=== PATIENT | male | born 1940 | race Caucasian/White ===

== ENCOUNTER 2017-05-11 05:56 | Day surgery (SDC) | payer MEDICARE ==
[2017-05-11] MEDS ORDERED: DIPRIVAN 200 MG/20 ML IV ONE (05:57)
[2017-05-11] MEDS ORDERED: Ketamine HCl 50 MG/ML IV ONE (05:57)
[2017-05-11] MEDS ORDERED: Lactated Ringers 1,000 ML IV SCH (06:30)
[2017-05-11] MEDS ORDERED: Lactated Ringers 1,000 ML IV ONE (06:48)
[2017-05-11 09:07] VITALS: BP 150/76; PULSE 63; O2SAT 94
--- NOTE | 2017-05-11 11:01 | OP ---
SURGERY DATE/TIME: 05/11/2017 0659 PREOPERATIVE DIAGNOSIS: Screening exam. POSTOPERATIVE DIAGNOSIS: Normal colon. PROCEDURE: Colonoscopy. SURGEON: Dr. Brandt. ANESTHESIA: MAC. Medications given by anesthesia department. HISTORY: The patient is a 76 year-old white male patient presenting now for screening colonoscopy. He was appraised of the risks of the procedure including the risk of perforation, phlebitis, untoward reaction to medication, bleeding and missed lesions. The patient verbalized his understanding and desired to have the procedure performed. DESCRIPTION OF PROCEDURE: The patient was given the medications by the anesthesia department. He had continuous pulse oximetry, ECG monitoring, intermittent blood pressure monitoring and tidal CO2 monitoring during the examination. He was placed in the left lateral decubitus position. A digital rectal examination was performed and revealed somewhat narrowed anal canal but no masses were felt. The flexible Olympus pediatric colonoscope was used to intubate the rectum. A view of the colon was developed sequentially to the cecum. Upon insertion and withdrawal, including a retroflex view in the rectum, no mucosal lesions were encountered. The scope was removed from the patient who tolerated the procedure well and was sent back to OP recovery in good condition. The prep was noted to be suboptimal.
== END 2017-05-11 09:00 | disposition home or self-care (01) ==
LOC: SDC 05:56
PROVIDERS: ATTEND Family Medicine
PROC: 0DJD8ZZ Inspection of Lower Intestinal Tract, Via Natural or Artificial Opening Endoscopic (ICD-10-PCS; principal; 2017-05-11)
DX: Z12.11 Encounter for screening for malignant neoplasm of colon (principal)
CPT/HCPCS: 00810; 99100; J2704

== ENCOUNTER 2017-09-08 16:08 | Observation (INO) | payer MEDICARE ==
--- NOTE | 2017-09-08 16:54 | ERPHSYRPT ---
- History of Present Illness Time Seen by Provider: 09/08/17 16:26 Source: patient, family (), EMS Patient Subjective Stated Complaint: to er per ems called for sob where states pt had episode of difficulty breathing and reporting of possible pain to chest. PT states she gave him one nitro though upon arrival ems state pt did not appear sob. pt arrives dysphasic from previous stroke though able to communicate pain to right shoulder and forearm Triage Nursing Assessment: to er c/o pain to possible right arm and lower abd. 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 He has had right arm pain today. Central chest pain since noon. gave NTG. He takes daily asa. They were worried about his heart so came to ER. He has no fall or injury. No fever or chills. Timing/Duration: today Severity: moderate Allergies/Adverse Reactions: No Known Drug Allergies Allergy (Verified 05/11/17 06:41) Home Medications: Alprazolam [Xanax 0.25 mg] 0.25 mg PO TIDPRN 05/06/17 [History] Aspirin 81 mg PO DAILY 05/06/17 [History] Bisacodyl [Laxative] 5 mg PO DAILY 05/06/17 [History] Citalopram Hydrobromide [Celexa] 20 mg PO DAILY 05/06/17 [History] Cyclobenzaprine HCl 10 mg [Cyclobenzaprine 10 MG] 10 mg PO TIDPRN [History] Docusate Sodium [Stool Softener] 50 mg PO DAILY PRN PRN 05/06/17 [History] Furosemide 20 mg [Lasix 20 mg] 20 mg PO DAILY 05/06/17 [History] Losartan Potassium 50 mg PO BID 05/06/17 [History] Metoprolol Succinate 50 mg PO DAILY 05/06/17 [History] Naproxen 375 mg PO BID 05/06/17 [History] Hx Tetanus, Diphtheria Vaccination/Date Given: Yes Hx Influenza Vaccination/Date Given: Yes - Review of Systems Eyes: No Symptoms Ears, Nose, & Throat: No Symptoms Respiratory: No Cough, No Dyspnea Cardiac: Chest Pain Abdominal/Gastrointestinal: No Abdominal Pain, No Nausea, No Vomiting Musculoskeletal: Joint Pain (right arm), No Back Pain, No Neck Pain, No Injury Neurological: No Dizziness, No Focal Weakness, No Parasthesia All Other Systems: Reviewed and Negative - Past Medical History Pertinent Past Medical History: Yes Neurological History: Stroke ENT History: No Pertinent History Cardiac History: High Cholesterol, Hypertension, Myocardial Infarction ([place]) Respiratory History: COPD Endocrine Medical History: No Pertinent History Musculoskeletal History: No Pertinent History GI Medical History: GERD History: No Pertinent History Psycho-Social History: No Pertinent History Male Reproductive Disorders: Prostate Problems - Past Surgical History Past Surgical History: Yes Neuro Surgical History: No Pertinent History Cardiac: No Pertinent History Respiratory: No Pertinent History Gastrointestinal: No Pertinent History Genitourinary: No Pertinent History Musculoskeletal: No Pertinent History Male Surgical History: No Pertinent History Other Surgical History: colonoscopies - Social History Smoking Status: Current every day smoker How long have you smoked: teenager Exposure to second hand smoke: Yes Drug Use: none Patient Lives Alone: No (here with ) - Nursing Vital Signs Nursing Vital Signs: Initial Vital Signs Temperature 98.2 F 09/08/17 16:10 Pulse Rate 106 H 09/08/17 16:10 Respiratory Rate 18 09/08/17 16:10 Blood Pressure 138/75 09/08/17 16:10 O2 Sat by Pulse Oximetry 94 L 09/08/17 16:10 Pain Scale Pain Intensity 0 - Physical Exam General Appearance: alert Eye Exam: PERRL/EOMI Ears, Nose, Throat Exam: dry mucous membranes Neck Exam: supple Respiratory Exam: normal breath sounds Cardiovascular Exam: regular rate/rhythm Gastrointestinal/Abdomen Exam: soft, No tenderness, No distention Extremity Exam: other (drawn right arm, nontender to palpation but basically desensate, pulse intact, no significant swelling, right frozen shoulder.) Neurologic Exam: alert, cooperative, sensation nml, other (partially aphasic), No motor deficits Skin Exam: warm, dry SpO2 Interpretation: normal SpO2: 94 - Course Nursing assessment & vital signs reviewed: Yes EKG Interpreted by Me: RATE (103), Sinus Tach, NORMAL AXIS, NORMAL INTERVALS ( QTc 464), Q-wave (inferior), Non-specific ST Changes - Radiology Exams cxr X-ray Interpretation: Teleradiologist Report (subtle asymmetric right base infiltrate vs atelectasis) Ordered Tests: Active Orders 24 hr Category Date Time Status Building Services Supervisor STAT Care 09/08/17 16:44 Active EKG-ER Only STAT Care 09/08/17 16:44 Active IV Insertion STAT Care 09/08/17 16:44 Active Pulse Oximetry (ED) STAT Care 09/08/17 16:44 Active CHEST 1 VIEW (PORTABLE) Stat Exams 09/08/17 16:44 Completed FOREARM Stat Exams 09/08/17 16:45 Completed HUMERUS Stat Exams 09/08/17 16:45 Completed BLOOD CULTURE Stat Lab 09/08/17 18:13 Ordered CBC W DIFF Stat Lab 09/08/17 17:17 Completed CMP Stat Lab 09/08/17 17:17 Completed Lactic Acid Stat Lab 09/08/17 18:12 Ordered Manual Differential NC Stat Lab 09/08/17 17:17 Completed TROPONIN Q3H Lab 09/08/17 17:17 Completed TROPONIN Q3H Lab 09/08/17 19:45 Ordered TROPONIN Q3H Lab 09/08/17 22:45 Ordered TROPONIN Q3H Lab 09/09/17 01:45 Ordered TROPONIN Q3H Lab 09/09/17 04:45 Ordered Lab/Rad Data: Laboratory Result Diagrams 09/08/17 17:17 09/08/17 17:17 Laboratory Results 09/08/17 09/08/17 09/08/17 Range/Units 17:17 17:17 17:17 WBC 14.9 H (4.0-10.5) K/mm3 RBC 4.46 (4.1-5.6) M/mm3 Hgb 14.0 (12.5-18.0) gm/dl Hct 42.7 (42-50) % MCV 95.7 (78-100) fl MCH 31.4 (26-32) pg MCHC 32.8 (32-36) g/dl RDW 13.5 (11.5-14.0) % Plt Count 138 L (150-450) K/mm3 MPV 10.9 H (6-9.5) fl Gran % 86.7 H (36.0-66.0) % Lymphocytes % 4.3 L (24.0-44.0) % Monocytes % 8.6 (0.0-12.0) % Eosinophils % 0.1 (0.00-5.0) % Basophils % 0.3 (0.0-0.4) % Segmented Neutrophils 91 H (36.-66.) % Band Neutrophils 2 (0.0-2.0) % Lymphocytes (Manual) 5 L (24-44) % Monocytes (Manual) 2 (0.0-12.0) % Basophils # 0.04 (0-0.4) Differential Comment NORMAL Platelet Estimate DECREASED (NORMAL) Sodium 137 (136-145) mEq/L Potassium 4.2 (3.5-5.1) mEq/L Chloride 103 (98-107) mEq/L Carbon Dioxide 27.4 (21-32) mEq/L Anion Gap 10.7 (5-15) MEQ/L BUN 16 (9-20) mg/dL Creatinine 1.37 H (0.55-1.30) mg/dl Estimated GFR 54 ML/MIN Glucose 183 H (70-110) MG/DL Calcium 8.9 (8.5-10.1) mg/dL Total Bilirubin 0.60 (0.2-1.0) mg/dL AST 24 (15-37) U/L ALT 27 (12-78) U/L Alkaline Phosphatase 104 (46-116) U/L Troponin I < 0.017 (0.000-0.056) ng/ml Serum Total Protein 6.8 (6.4-8.2) gm/dL Albumin 3.5 (3.4-5.0) g/dL - Progress Progress Note: 09/08/17 18:13 CXR shows ?right base infiltrate. Arm xray negative. Still has right arm pain. No chest pain. concerned about heart. Called Dr Brandt who advised obs. Counseled pt/family regarding: diagnosis, need for follow-up - Departure Time of Disposition: 18:14 Departure Disposition: Observation Clinical Impression: Chest pain, rule out acute myocardial infarction, right base pneumonia, Hx of completed stroke Condition: Fair Critical Care Time: No Referrals: NIKKI BRANDT [Primary Care Provider] -
--- NOTE | 2017-09-08 17:14 | XRAY ---
Indication: Short of breath. Chest pain. Comparison: None Portable chest demonstrates subtle asymmetric right base infiltrate versus atelectasis. Remaining heart and lungs unremarkable. Bony thorax intact with mild degenerative changes.
--- NOTE | 2017-09-08 17:16 | XRAY ---
Indication: Pain. Stroke. Comparison: None 2 views of the right forearm demonstrates mild osteopenia. No other bony, articular, or soft tissue abnormalities.
--- NOTE | 2017-09-08 17:16 | XRAY ---
Indication: Pain. Stroke. Comparison: None 2 views of the right humerus demonstrates mild osteopenia, tiny lateral epicondyle spurring, and mild AC degenerative arthropathy. No other bony, articular, or soft tissue abnormalities.
[2017-09-08 17:23] LABS: BASOPHIL % 0.3 % (0.0-0.4); Basophil (Absolute #) 0.04 (0-0.4); Eosinophil % 0.1 % (0.00-5.0); Eosinophil (Absolute #) 0.01 (0-0.5); Granulocytes % 86.7 % (36.0-66.0); Hematocrit 42.7 % (42-50); Lymphocyte (Absolute #) 0.64 (1.0-4.6); Lymphocytes % 4.3 % (24.0-44.0); Mean Cell Volume 95.7 fl (78-100); Mean Corpuscular Hemoglobin 31.4 pg (26-32); Mean Corpuscular Hgb Concent. 32.8 g/dl (32-36); Mean Platelet Volume 10.9 fl (6-9.5); Monocyte (Absolute #) 1.28 (0.0-1.3); Monocytes % 8.6 % (0.0-12.0); Platelet Count 138 K/mm3 (150-450); Red Blood Count 4.46 M/mm3 (4.1-5.6); Red Cell Distribution Width 13.5 % (11.5-14.0); White Blood Count 14.9 K/mm3 (4.0-10.5)
[2017-09-08 17:49] LABS: ALBUMIN 3.5 g/dL (3.4-5.0); ANION GAP 10.7 MEQ/L (5-15); BILIRUBIN,TOTAL 0.6 mg/dL (0.2-1.0); Calcium 8.9 mg/dL (8.5-10.1); Carbon Dioxide 27.4 mEq/L (21-32); Creatinine 1 1.37 mg/dl (0.55-1.30); Potassium 4.2 mEq/L (3.5-5.1); Total Protein 6.8 gm/dL (6.4-8.2)
[2017-09-08 18:01] LABS: BAND 2 % (0.0-2.0); Lymphocytes 5 % (24-44); Monocyte 2 % (0.0-12.0); Neutrophils 91 % (36.-66.); Platelet Estimate DECREASED (NORMAL); Total Cells Counted 100
[2017-09-08] MEDS ORDERED: ROCEPHIN 1 Gm-D5w 50 ml Bag** 1 G/50 ML IVPB IV STA (18:12)
[2017-09-08] MEDS ORDERED: Vibramycin 100 MG PO ONE (18:13)
[2017-09-08] MEDS ORDERED: NITRO-BID 2% UD PACKETS TOP ONE (18:15)
[2017-09-08] MEDS ORDERED: Senokot-S Tablet PO PRN (19:09)
[2017-09-08] MEDS ORDERED: NovoLOG Insulin SQ PRN (19:09)
[2017-09-08] MEDS ORDERED: TYLENOL 325 MG PO PRN (19:09)
[2017-09-08] MEDS ORDERED: MILK OF MAGNESIA 30 ML PO PRN (19:09)
[2017-09-08] MEDS ORDERED: MAALOX ES 30 ML UNIT DOSE PO PRN (19:09)
[2017-09-08] MEDS ORDERED: Zofran 4 MG/2 ML VIAL IV PRN (19:09)
[2017-09-08] MEDS: Vibramycin 100 MG PO SCH (22:07)
[2017-09-08] MEDS: NITRO-BID 2% UD PACKETS TOP SCH (22:07)
[2017-09-09 05:47] LABS: Risk Ratio 3.7
[2017-09-09] MEDS: NITRO-BID 2% UD PACKETS TOP SCH (05:50)
[2017-09-09] MEDS: Vibramycin 100 MG PO SCH (09:15)
[2017-09-09] MEDS ORDERED: ROCEPHIN 1 Gm-D5w 50 ml Bag** 1 G/50 ML IVPB IV SCH (10:00)
[2017-09-09] MEDS ORDERED: Ecotrin 325 MG PO SCH (10:00)
--- NOTE | 2017-09-09 10:43 | SSS ---
DISCHARGE DIAGNOSES: 1) DYSPNEA. 2) ARM PAIN. HISTORY OF PRESENT ILLNESS: The patient is a 76 year-old white male patient who apparently began complaining of discomfort last evening. It was hard to get a history from the patient because he has had a previous stroke with right hemiparesis and aphasia. The patient's reports that she can tell that he was complaining of arm pain. They were concerned about the potential for being due to his heart. He did begin having somewhat of a cough as well though as well as chills but his temperature was not checked at home. She reports he has had no weight fluctuation recently to be concerned for the possibility of heart failure and no leg edema. PAST MEDICAL HISTORY: Otherwise significant for chronic obstructive pulmonary disease, previous myocardial infarction, hypertension, hyperlipidemia, gastroesophageal reflux disease. HOME MEDICATIONS: Currently include aspirin 81 mg a day, Celexa 20 mg a day, cyclobenzaprine 10 mg t.i.d. PRN, docusate sodium 50 mg PRN, Lasix 20 mg a day, losartan 50 mg b.i.d., metoprolol 50 mg daily, naproxen 375 mg b.i.d. for pain. ALLERGIES: NKDA. PHYSICAL EXAMINATION: Revealed a well-nourished, well-developed 76 year-old white male patient currently in no distress whatsoever. He is sitting up getting a shave in bed. His temperature on admission to the emergency room showed temperature 98.2F, pulse 106, respiratory rate 18 and blood pressure 138/75. O2 saturation 94% on room air. HEENT: Normocephalic, atraumatic. Pupils equal round reactive to light. Extraocular movements intact. Oropharynx is pink and moist. NECK: Supple without lymphadenopathy, thyromegaly or JVD. CHEST: Clear to auscultation with good air movement bilaterally. HEART: Regular rate and rhythm somewhat tachycardic. No rubs or gallops are heard. ABDOMEN: Soft, nontender, nondistended without palpable masses. EXTREMITIES: Without clubbing, cyanosis or significant edema. He has a brace on his right leg at the knee for support. NEUROLOGIC: He is alert and oriented x3, expressive aphasia and partial right hemiparesis is noted. LAB DATA AND TESTS: Troponins no greater than 0.026 on several occasions. He had a lipid panel showing LDL 54, HDL 30. He has a CBC showing white blood cell count elevated at 14,900, hemoglobin 14.0, PLT count 138,000. There have been 2 bands and 91 polys. He had a CMP with nonfasting sugar at 183, BUN 16, creatinine 1.37. Electrolytes were normal. Liver enzymes were normal. X-ray revealed subtle asymmetric right base infiltrate versus atelectasis. The heart and lungs otherwise appeared unremarkable. He did have an x-ray of the humerus which shows mild osteopenia and mild AC degenerative arthropathy. His right forearm was essentially normal. His EKG essentially shows sinus tachycardia, good R-wave progression across the precordial leads, normal access. ASSESSMENT: A patient with possible angina episode has been admitted. Myocardial infarction thus far has been ruled out. He has slight elevation in his white blood cell count with mild left shift. He had been placed empirically on antibiotics in the emergency room of [facility]. He has not however been swabbed for flu which is very high in our community at this time, nor did he have ProBNP level and these will both be checked. Since the patient is looking much better at this point and having essentially ruled out for myocardial infarction he is felt to be ready for discharge back home again. We will send him home on doxycycline 100 mg b.i.d. and if his flu swab is positive we will send him home on Tamiflu as well. He will have follow up in the office in one week or they are to call if he has any further problems in the interim.
[2017-09-09 11:23] VITALS: BP 121/68; PULSE 83; O2SAT 95
[2017-09-09 11:52] LABS: INFLUENZA A NEGATIVE (NEGATIVE); INFLUENZA B NEGATIVE (NEGATIVE); RESPIRATORY SYNCTIAL VIRUS NEGATIVE (Negative)
== END 2017-09-09 13:47 | disposition home or self-care (01) ==
LOC: ED 16:08 → UNDOADMOB 19:06 → MED SURG 19:06 → UNDODISOB 09-09 13:47
PROVIDERS: ADMIT Family Medicine; ATTEND Family Medicine
DX: R06.00 Dyspnea, unspecified (principal); M79.603 Pain in arm, unspecified; Z86.73 Personal history of transient ischemic attack (TIA), and cerebral infarction without residual deficits; I69.351 Hemiplegia and hemiparesis following cerebral infarction affecting right dominant side; I69.320 Aphasia following cerebral infarction; J44.9 Chronic obstructive pulmonary disease, unspecified; I10 Essential (primary) hypertension; I25.2 Old myocardial infarction; E78.5 Hyperlipidemia, unspecified; K21.9 Gastro-esophageal reflux disease without esophagitis; Z79.899 Other long term (current) drug therapy; R60.0 Localized edema
CPT/HCPCS: 36415; 71045; 73060; 73090; 80053; 80061; 82962; 83605; 83721; 83880; 84484; 85025; 87040; 87631; 93005; 93041; 93268; 94760; 96365; 99285; G0378; J0696; A9270-GY